=== PATIENT | male | born 1960 | race Two or more races ===

== ENCOUNTER 2023-11-13 09:03 | Day surgery (SDC) | payer OTHER ==
[2023-11-05 16:58] VITALS: BMI 25.5
[2023-11-13 10:37] VITALS: RESP 16; TEMP 97.5
[2023-11-13 10:54] VITALS: BP 121/67; PULSE 74
== END 2023-11-13 11:00 | disposition home or self-care (01) ==
LOC: FASU-ENDO 09:03
PROVIDERS: ATTEND Internal Medicine Gastroenterology
PROC: 0DBP8ZX Excision of Rectum, Via Natural or Artificial Opening Endoscopic, Diagnostic (ICD-10-PCS; principal; 2023-11-13 10:07)
DX: Z12.11 Encounter for screening for malignant neoplasm of colon (principal); K63.5 Polyp of colon; K64.1 Second degree hemorrhoids
CPT/HCPCS: 82962; 88305-TC